=== PATIENT | male | born 1960 | race Caucasian/White ===

== ENCOUNTER → 2022-01-26 | Day surgery (SDC) | payer OTHER ==
[~2022-01-26] MED LIST: Dexamethasone 4 MG/ML SDV ONE; Ketamine 200 MG/20 ML MDV ONE; Ketorolac 30 MG/ML SDV ONE; Labetalol 100 MG/20 ML MDV ONE; Lidocaine 2% 5 ML SDV ONE; Midazolam 1 MG/ML 2 ML SDV ONE; Ondansetron 4 MG/2 ML SDV ONE; Propofol 200 MG/20 ML SDV ONE; fentaNYL 100 MCG/2 ML SDV ONE
[2022-01-26] MEDS: Lactated Ringers 1,000 ML IV SCH (09:32)
== END ==
LOC: CC.SDS 09:01
PROVIDERS: ATTEND Surgery
DX: K42.9 Umbilical hernia without obstruction or gangrene (principal); N40.0 Benign prostatic hyperplasia without lower urinary tract symptoms; N52.9 Male erectile dysfunction, unspecified; E78.5 Hyperlipidemia, unspecified; M62.08 Separation of muscle (nontraumatic), other site; E66.9 Obesity, unspecified; Z87.891 Personal history of nicotine dependence; Z98.890 Other specified postprocedural states; Z68.33 Body mass index [BMI] 33.0-33.9, adult; Z01.812 Encounter for preprocedural laboratory examination; Z20.822 Contact with and (suspected) exposure to COVID-19
CPT/HCPCS: 00750; J1100; J1885; J2250; J2405; J2704; J3010; J3490; J7120; U0002

== ENCOUNTER 2025-10-14 09:09 | Day surgery (SDC) | payer MEDICARE, OTHER ==
[2025-10-14] MEDS: Lactated Ringers 1,000 ML IV SCH (09:35)
== END 2025-10-14 11:40 | disposition home or self-care (01) ==
LOC: CC.SDS 09:09
PROVIDERS: ATTEND Family Medicine
DX: Z12.11 Encounter for screening for malignant neoplasm of colon (principal); K57.30 Diverticulosis of large intestine without perforation or abscess without bleeding; E78.5 Hyperlipidemia, unspecified; I10 Essential (primary) hypertension; Z87.891 Personal history of nicotine dependence; Z79.899 Other long term (current) drug therapy
CPT/HCPCS: G0121; J7120